=== PATIENT | male | born 1940 | race Two or more races ===

== ENCOUNTER 2020-07-18 11:00 | Day surgery (SDC) | payer OTHER ==
[~2020-07-18 11:00] MED LIST: ECOTRIN81 MG PO; GLUCOTROL XL5 MG PO; METFORMIN HCL1000 M2 PO
[2020-07-18] MEDS ORDERED: CIPRO HC OTIC S10 ML OT (16:26)
== END 2020-07-18 17:30 | disposition home or self-care (01) ==
LOC: CIR.AMB 11:00
PROVIDERS: ATTEND Otolaryngology
DX: H90.12 Conductive hearing loss, unilateral, left ear, with unrestricted hearing on the contralateral side (principal); Z20.828 Contact with and (suspected) exposure to other viral communicable diseases

== ENCOUNTER 2020-09-09 10:52 | Outpatient (CLI) | payer OTHER ==
[~2020-09-09 10:52] MED LIST changes: +CIPRO HC OTIC S10 ML OT
== END 2020-09-09 11:00 | disposition home or self-care (01) ==
LOC: OFIC 805 10:52
PROVIDERS: ATTEND Otolaryngology
DX: H90.12 Conductive hearing loss, unilateral, left ear, with unrestricted hearing on the contralateral side (principal)

== ENCOUNTER 2020-09-29 11:18 | Outpatient (CLI) | payer OTHER | END 2020-09-29 12:43 | disposition home or self-care (01) | LOC: OFIC 805 11:18 | PROVIDERS: ATTEND Otolaryngology | DX: H90.12 Conductive hearing loss, unilateral, left ear, with unrestricted hearing on the contralateral side (principal); H93.8X2 Other specified disorders of left ear ==

== ENCOUNTER 2020-11-09 12:14 | Outpatient (CLI) | payer OTHER | END 2020-11-09 13:44 | disposition home or self-care (01) | LOC: OFIC 805 12:14 | PROVIDERS: ATTEND Otolaryngology Otology & Neurotology | DX: G44.89 Other headache syndrome (principal) ==

== ENCOUNTER 2020-12-28 09:15 | Outpatient (CLI) | payer OTHER | END 2020-12-28 09:55 | disposition home or self-care (01) | LOC: OFIC 805 09:15 | PROVIDERS: ATTEND Otolaryngology Otology & Neurotology | DX: H90.12 Conductive hearing loss, unilateral, left ear, with unrestricted hearing on the contralateral side (principal); H93.8X2 Other specified disorders of left ear; G44.89 Other headache syndrome ==

== ENCOUNTER 2021-01-04 10:09 | Outpatient (CLI) | payer OTHER | END 2021-01-04 10:37 | disposition home or self-care (01) | LOC: OFIC 805 10:09 | PROVIDERS: ATTEND Otolaryngology Otology & Neurotology | DX: H90.12 Conductive hearing loss, unilateral, left ear, with unrestricted hearing on the contralateral side (principal); H93.8X2 Other specified disorders of left ear; G44.89 Other headache syndrome; H69.82 Other specified disorders of Eustachian tube, left ear ==

== ENCOUNTER 2023-07-10 11:05 | Inpatient (IN) | payer OTHER ==
[~2023-07-10] VITALS: Ht 162.6 cm; Wt 63.5 kg
[2023-07-10 12:09] LABS: HEMATOCRIT 30.8 % (39.0-48.0); HEMOGLOBIN 10.1 g/dL (13-16.00); MEAN CELL VOLUME 95.4 fL (80.0-100.00); MEAN CORPUSCULAR HEMOGLOBIN 31.3 pg (27.00-32.0); MEAN CORPUSCULAR HGB CONC 32.7 g/dl (32.0-36.0); PLATELET COUNT 227 K/uL (150-450); RED BLOOD COUNT 3.23 M/uL (4.00-6.00); RED CELL DISTRIBUTION WIDTH 16.3 % (11.5-14.5)
[2023-07-10 12:44] LABS: ALBUMIN 3.6 gm/dL (3.4-5.0); BILIRUBIN TOTAL 0.4 mg/dL (0.3-1.2); CALCIUM 9.7 mg/dL (8.5-10.1); CREATININE SERUM 3.2 mg/dL (0.70-1.30); GFR 18.74; GLOBULINA 5.1 G/DL (2.4-3.5); POTASSIUM 5.3 mEq/L (3.5-5.1); TOTAL PROTEIN 8.7 gm/dL (6.4-8.2)
[2023-07-10 18:10] LABS: PARTIAL THROMBOPLASTIN TIME 27.3 SECONDS (22.0-34.0); PROTHROMBIN TIME 10.5 SECONDS (9.0-11.5)
[2023-07-10 18:25] LABS: MAGNESIUM 1.5 mg/dL (1.8-2.4); PHOSPHOROUS 3.3 mg/dL (2.5-4.9)
[2023-07-10 19:42] LABS: ABG PO2 101.8 mmHg (80-100); ABG pCO2 30.5 mmHg (35-45); BASE EXCESS -6.1 mmol/l; BICARBONATE 17.6 mmol/l (23-25); SaO2 97.5 %; Tco2 18.6 mmol/l; allen test SATISFACTORY; o2 21 %; puncture site RADIAL RIGHT
[2023-07-11 08:16] LABS: CHOL HDL RATIO 2.3 (0-5.0); TSH 2.16 uIU/mL (0.358-3.74)
[2023-07-11 19:14] LABS: PH,URINE 6.5 (5.0-8.0); URINE APPEARANCE Clear; URINE BILIRRUBIN Negative (NEGATIVE); URINE BLOOD Small; URINE COLOR Yellow; URINE LEUKOCYTE Negative; URINE NITRATE Negative; URINE UROBILINOGEN 0.2 E.U./dl
[2023-07-11 19:15] LABS: URINE EPITHELIAL CELLS 3.8 uL (0.0-38.8)
[2023-07-11 19:21] LABS: URINE GLUCOSE 500 MG/DL (NEGATIVE); URINE PROTEIN 100 (NEGATIVE); URINE RBC 0.2 uL (0.0-20.8); URINE WBC 1.6 uL (0.0-23.2)
[2023-07-12 15:39] LABS: CALCIUM 8.8 mg/dL (8.5-10.1); CREATININE SERUM 2.81 mg/dL (0.70-1.30); GFR 21.77; POTASSIUM 4.46 mEq/L (3.5-5.1)
[2023-07-13 08:02] LABS: HEMATOCRIT 30.7 % (39.0-48.0); HEMOGLOBIN 10.4 g/dL (13-16.00); MEAN CELL VOLUME 93.7 fL (80.0-100.00); MEAN CORPUSCULAR HEMOGLOBIN 31.7 pg (27.00-32.0); MEAN CORPUSCULAR HGB CONC 33.8 g/dl (32.0-36.0); PLATELET COUNT 192 K/uL (150-450); RED BLOOD COUNT 3.28 M/uL (4.00-6.00); RED CELL DISTRIBUTION WIDTH 15.6 % (11.5-14.5)
[2023-07-13 08:30] LABS: ALBUMIN 3.1 gm/dL (3.4-5.0); BILIRUBIN TOTAL 0.28 mg/dL (0.3-1.2); CALCIUM 8.5 mg/dL (8.5-10.1); CREATININE SERUM 3.03 mg/dL (0.70-1.30); GFR 19.95; GLOBULINA 4.3 G/DL (2.4-3.5); POTASSIUM 4.42 mEq/L (3.5-5.1); TOTAL PROTEIN 7.4 gm/dL (6.4-8.2)
[2023-07-13 08:36] LABS: ALBUMIN 3.1 gm/dL (3.4-5.0); CALCIUM 8.6 mg/dL (8.5-10.1); GFR 20.18; PHOSPHOROUS 4.3 mg/dL (2.5-4.9); POTASSIUM 4.41 mEq/L (3.5-5.1)
[2023-07-14 09:01] LABS: ALBUMIN 3.3 gm/dL (3.4-5.0); BILIRUBIN TOTAL 0.29 mg/dL (0.3-1.2); CALCIUM 8.6 mg/dL (8.5-10.1); CREATININE SERUM 2.79 mg/dL (0.70-1.30); GFR 21.95; GLOBULINA 4.4 G/DL (2.4-3.5); POTASSIUM 4.49 mEq/L (3.5-5.1); TOTAL PROTEIN 7.7 gm/dL (6.4-8.2)
== END 2023-07-14 10:03 | disposition home or self-care (01) | DRG 194 ==
LOC: ER 11:05 → SURH 18:54
PROVIDERS: General Practice; Internal Medicine Nephrology; ADMIT Specialist; ATTEND Specialist
PROC: BT43ZZZ Ultrasonography of Bilateral Kidneys (ICD-10-PCS; 2023-07-10)
PROC: BW24ZZZ Computerized Tomography (CT Scan) of Chest and Abdomen (ICD-10-PCS; 2023-07-10)
PROC: B24BYZZ Ultrasonography of Heart with Aorta using Other Contrast (ICD-10-PCS; 2023-07-10)
PROC: 3E0F7GC Introduction of Other Therapeutic Substance into Respiratory Tract, Via Natural or Artificial Opening (ICD-10-PCS; 2023-07-11)
PROC: 8E0ZXY6 Isolation (ICD-10-PCS; principal; 2023-07-12)
DX: J10.00 Influenza due to other identified influenza virus with unspecified type of pneumonia (principal); N17.9 Acute kidney failure, unspecified; I50.9 Heart failure, unspecified; I12.9 Hypertensive chronic kidney disease with stage 1 through stage 4 chronic kidney disease, or unspecified chronic kidney disease; E11.22 Type 2 diabetes mellitus with diabetic chronic kidney disease; N18.9 Chronic kidney disease, unspecified; Z79.4 Long term (current) use of insulin; E78.5 Hyperlipidemia, unspecified; E87.5 Hyperkalemia